=== PATIENT | female | born 1965 | race Caucasian/White ===

== ENCOUNTER 2016-06-11 07:08 | Day surgery (SDC) | payer OTHER ==
[2016-06-11] MEDS ORDERED: PALONOSETRON HCL 0.25 MG in SODIUM CHLORIDE 50 ML IVPB ONE (08:00)
[2016-06-11] MEDS ORDERED: DEXAMETHASONE INJECTION 10 MG in SODIUM CHLORIDE 50 ML IVPB ONE (08:00)
[2016-06-11] MEDS ORDERED: OXALIPLATIN 100 MG, OXALIPLATIN 40 MG in DEXTROSE 5%-WATER - 500 ML IV ONE (08:30)
[2016-06-11] MEDS ORDERED: WATER IVPB ONE (08:30)
[2016-06-11] MEDS ORDERED: DEXTROSE 5% IVPB ONE (08:30)
[2016-06-11] MEDS ORDERED: LEUCOVORIN IVPB ONE (08:30)
[2016-06-11] MEDS ORDERED: SODIUM CHLORIDE CP ONE (10:15)
[2016-06-11] MEDS ORDERED: FLUOROURACIL CP ONE (10:15)
[2016-06-11] MEDS ORDERED: FLUOROURACIL 500 MG/10 ML VIAL IVPUSH ONE (10:30)
[2016-06-11 10:46] LABS: EOSINOPHIL 12.6 % (0-4.5); MCH 25.3 pg (25.7-33.7); MCHC 32.6 g/dl (32.0-36.0); MEAN CELL VOLUME 77.4 fl (80-96); MEAN PLT VOLUME 7.1 fl (7.5-11.1); NEUTROPHILS 39.3 % (42.8-82.8); PLATELET COUNT 395 K/MM3 (134-434); RDW 19.4 % (11.6-15.6); WHITE BLOOD COUNT 5.3 K/mm3 (4.0-10.0)
[2016-06-11] MEDS ORDERED: PORTA CATH FLUSH 10 ML IVPUSH ONE (14:38)
[2016-06-11 17:39] VITALS: BP 115/77; PULSE 85
[2016-06-11 17:48] VITALS: TEMP 98.3
== END 2016-06-11 17:58 | disposition home or self-care (01) ==
LOC: JONCCHEMO 07:08 → J7W 11:25 → JONCCHEMO 17:58
PROVIDERS: ATTEND Internal Medicine Hematology & Oncology
DX: Z51.11 Encounter for antineoplastic chemotherapy (principal); C17.9 Malignant neoplasm of small intestine, unspecified
CPT/HCPCS: 36415; 85025; 96366; 96367; 96375; 96409; 96413; 96415; 96416; 96417; J2469; J9190; J9263

== ENCOUNTER 2016-06-13 07:13 | Day surgery (SDC) | payer OTHER ==
[2016-06-13 10:37] VITALS: BP 123/77; TEMP 97.7
[2016-06-13] MEDS ORDERED: PORTA CATH FLUSH 10 ML IVPUSH ONE (10:37)
[2016-06-13 11:09] VITALS: PULSE 63
== END 2016-06-13 11:54 | disposition home or self-care (01) ==
LOC: JONCCHEMO 07:13 → J7W 10:19 → JONCCHEMO 11:54
PROVIDERS: ATTEND Internal Medicine Hematology & Oncology
PROC: 3E033NZ Introduction of Analgesics, Hypnotics, Sedatives into Peripheral Vein, Percutaneous Approach (ICD-10-PCS; principal; 2016-06-13)
DX: Z53.8 Procedure and treatment not carried out for other reasons (principal)

== ENCOUNTER 2016-06-25 07:41 | Day surgery (SDC) | payer OTHER ==
[2016-06-25] MEDS ORDERED: DEXAMETHASONE INJECTION 10 MG in SODIUM CHLORIDE 50 ML IVPB ONE (08:00)
[2016-06-25] MEDS ORDERED: PALONOSETRON HCL 0.25 MG in SODIUM CHLORIDE 50 ML IVPB ONE (08:00)
[2016-06-25] MEDS ORDERED: WATER IVPB ONE (08:30)
[2016-06-25] MEDS ORDERED: DEXTROSE 5% IVPB ONE (08:30)
[2016-06-25] MEDS ORDERED: OXALIPLATIN 100 MG, OXALIPLATIN 40 MG in DEXTROSE 5%-WATER - 500 ML IV ONE (08:30)
[2016-06-25] MEDS ORDERED: LEUCOVORIN IVPB ONE (08:30)
[2016-06-25 09:45] LABS: BASOPHIL 0.9 % (0-2.0); EOSINOPHIL 11.7 % (0-4.5); MCH 24.6 pg (25.7-33.7); MCHC 32.2 g/dl (32.0-36.0); MEAN CELL VOLUME 76.4 fl (80-96); MEAN PLT VOLUME 7.1 fl (7.5-11.1); NEUTROPHILS 39.7 % (42.8-82.8); PLATELET COUNT 229 K/MM3 (134-434); RDW 18.3 % (11.6-15.6); WHITE BLOOD COUNT 5.5 K/mm3 (4.0-10.0)
[2016-06-25] MEDS ORDERED: FLUOROURACIL 500 MG/10 ML VIAL IVPUSH ONE (10:30)
[2016-06-25] MEDS ORDERED: SODIUM CHLORIDE CP ONE (10:35)
[2016-06-25] MEDS ORDERED: FLUOROURACIL CP ONE (10:35)
[2016-06-25 13:32] LABS: MAGNESIUM 2.2 mg/dL (1.8-2.4)
[2016-06-25 13:38] LABS: ALBUMIN 3.8 g/dl (3.4-5.0); BILIRUBIN,TOTAL 0.2 mg/dL (0.2-1.0); SGOT/AST 23 U/L (15-37); SGPT/ALT 24 U/L (12-78); TOT PROT 7.2 g/dl (6.4-8.2)
[2016-06-25 13:39] LABS: ALK PHOS 56 U/L (45-117); BILIRUBIN,DIRECT < 0.1 mg/dL (0.0-0.2)
[2016-06-25 14:38] VITALS: TEMP 98.3
[2016-06-25] MEDS ORDERED: PORTA CATH FLUSH 10 ML IVPUSH ONE (14:38)
[2016-06-25 16:50] VITALS: BP 118/82; PULSE 85
== END 2016-06-25 18:01 | disposition home or self-care (01) ==
LOC: JONCCHEMO 07:41 → J7W 11:46 → JONCCHEMO 18:01
PROVIDERS: ATTEND Internal Medicine Hematology & Oncology
PROC: 3E04305 Introduction of Other Antineoplastic into Central Vein, Percutaneous Approach (ICD-10-PCS; principal; 2016-06-25)
PROC: 3E04305 Introduction of Other Antineoplastic into Central Vein, Percutaneous Approach (ICD-10-PCS; 2016-06-25)
PROC: 3E043GC Introduction of Other Therapeutic Substance into Central Vein, Percutaneous Approach (ICD-10-PCS; 2016-06-25)
DX: Z51.11 Encounter for antineoplastic chemotherapy (principal); C17.9 Malignant neoplasm of small intestine, unspecified
CPT/HCPCS: 96368; 96375; 96413; 96415; 96416; J9190; J9263; 36415; 80076; 83735; 85025; 96367; 96409; G0498; J2469

== ENCOUNTER 2016-06-27 07:29 | Day surgery (SDC) | payer OTHER ==
[2016-06-27 14:37] VITALS: TEMP 97.8
[2016-06-27] MEDS ORDERED: PORTA CATH FLUSH 10 ML IVPUSH ONE (14:37)
[2016-06-27] MEDS ORDERED: DEXAMETHASONE SOD PHOSPHATE 10 MG/1 ML VIAL IVPB STA (14:37)
[2016-06-27] MEDS ORDERED: ONDANSETRON 4 MG/2 ML VIAL IVPB STA (14:37)
[2016-06-27] MEDS ORDERED: DEXAMETHASONE INJECTION 10 MG, ONDANSETRON INJECTION 8 MG in SODIUM CHLORIDE 100 ML IVPB ONE (14:45)
[2016-06-27 15:42] VITALS: BP 135/72; PULSE 72
== END 2016-06-27 17:55 | disposition home or self-care (01) ==
LOC: JONCNONCHE 07:29 → J7W 14:12 → JONCNONCHE 17:55
PROVIDERS: ATTEND Internal Medicine Hematology & Oncology
PROC: 0JPVXVZ Removal of Infusion Pump from Upper Extremity Subcutaneous Tissue and Fascia, External Approach (ICD-10-PCS; principal; 2016-06-27)
DX: Z53.8 Procedure and treatment not carried out for other reasons (principal)

== ENCOUNTER 2016-07-16 07:42 | Day surgery (SDC) | payer OTHER ==
[2016-07-16 08:47] LABS: BASOPHIL 0.2 % (0-2.0); EOSINOPHIL 3.3 % (0-4.5); MCH 24.2 pg (25.7-33.7); MCHC 31.7 g/dl (32.0-36.0); MEAN CELL VOLUME 76.3 fl (80-96); MEAN PLT VOLUME 6.2 fl (7.5-11.1); NEUTROPHILS 44.1 % (42.8-82.8); PLATELET COUNT 375 K/MM3 (134-434); RDW 17.3 % (11.6-15.6); WHITE BLOOD COUNT 4.8 K/mm3 (4.0-10.0)
[2016-07-16] MEDS ORDERED: PALONOSETRON HCL 0.25 MG in SODIUM CHLORIDE 50 ML IVPB ONE (10:00)
[2016-07-16] MEDS ORDERED: DEXAMETHASONE INJECTION 10 MG in SODIUM CHLORIDE 50 ML IVPB ONE (10:00)
[2016-07-16] MEDS ORDERED: PORTA CATH FLUSH 10 ML IVPUSH ONE (10:09)
[2016-07-16] MEDS ORDERED: OXALIPLATIN 140 MG in DEXTROSE 5%-WATER - 500 ML IV ONE (10:30)
[2016-07-16] MEDS ORDERED: LEUCOVORIN IVPB ONE (10:30)
[2016-07-16] MEDS ORDERED: WATER IVPB ONE (10:30)
[2016-07-16] MEDS ORDERED: DEXTROSE 5% IVPB ONE (10:30)
[2016-07-16 11:50] LABS: ALBUMIN 3.4 g/dl (3.4-5.0); ANION GAP 10 (8-16); CALCIUM 8.7 mg/dL (8.5-10.1); CO2 27 mmol/L (21-32); COCKROFT - GAULT 96.05; CREATININE 0.7 mg/dL (0.55-1.02); GLUCOSE,RANDOM 83 mg/dL (74-106); MAGNESIUM 2.2 mg/dL (1.8-2.4); SGOT/AST 30 U/L (15-37); SGPT/ALT 33 U/L (12-78)
[2016-07-16 11:51] LABS: ALK PHOS 58 U/L (45-117); BILIRUBIN,TOTAL 0.2 mg/dL (0.2-1.0); TOT PROT 7.1 g/dl (6.4-8.2)
[2016-07-16 11:54] LABS: BILIRUBIN,DIRECT < 0.1 mg/dL (0.0-0.2)
[2016-07-16] MEDS ORDERED: FLUOROURACIL 500 MG/10 ML VIAL IVPUSH ONE (12:30)
[2016-07-16] MEDS ORDERED: SODIUM CHLORIDE CP ONE (12:45)
[2016-07-16] MEDS ORDERED: FLUOROURACIL CP ONE (12:45)
[2016-07-16 15:17] VITALS: BP 108/70; PULSE 75; TEMP 98.1
== END 2016-07-16 18:28 | disposition home or self-care (01) ==
LOC: JONCCHEMO 07:42 → J7W 09:56 → JONCCHEMO 18:28
PROVIDERS: ATTEND Internal Medicine Hematology & Oncology
DX: Z51.11 Encounter for antineoplastic chemotherapy (principal); C17.9 Malignant neoplasm of small intestine, unspecified
CPT/HCPCS: 36415; 80053; 80076; 83735; 85025; 96367; 96375; 96409; 96413; 96415; G0498; J2469; J9190; J9263

== ENCOUNTER 2016-07-18 07:36 | Day surgery (SDC) | payer OTHER ==
[2016-07-18 17:02] VITALS: BP 122/64; PULSE 72; TEMP 97.4
== END 2016-07-18 11:53 | disposition home or self-care (01) ==
LOC: JONCNONCHE 07:36 → J7W 11:22 → JONCNONCHE 11:53
PROVIDERS: ATTEND Internal Medicine Hematology & Oncology
DX: Z51.11 Encounter for antineoplastic chemotherapy (principal); C17.9 Malignant neoplasm of small intestine, unspecified
CPT/HCPCS: 96367; 96375; 96413; 96415; 96417

== ENCOUNTER 2016-07-30 07:34 | Day surgery (SDC) | payer OTHER ==
[2016-07-30 09:10] LABS: MEAN PLT VOLUME 6.8 fl (7.5-11.1); WHITE BLOOD COUNT 3.2 K/mm3 (4.0-10.0)
[2016-07-30 09:12] LABS: BASOPHIL 0.4 % (0-2.0); EOSINOPHIL 11.6 % (0-4.5); MCH 24.1 pg (25.7-33.7); MCHC 31.6 g/dl (32.0-36.0); MEAN CELL VOLUME 76.3 fl (80-96); NEUTROPHILS 32.2 % (42.8-82.8); PLATELET COUNT 172 K/MM3 (134-434); RDW 17.7 % (11.6-15.6)
[2016-07-30 09:53] LABS: ALBUMIN 3.4 g/dl (3.4-5.0); ALK PHOS 56 U/L (45-117); ANION GAP 9 (8-16); BILIRUBIN,TOTAL 0.3 mg/dL (0.2-1.0); CALCIUM 8.4 mg/dL (8.5-10.1); CO2 24 mmol/L (21-32); CREATININE 0.7 mg/dL (0.55-1.02); GLUCOSE,RANDOM 96 mg/dL (74-106); MAGNESIUM 2.1 mg/dL (1.8-2.4); SGOT/AST 41 U/L (15-37); SGPT/ALT 39 U/L (12-78)
[2016-07-30] MEDS ORDERED: PALONOSETRON HCL 0.25 MG in SODIUM CHLORIDE 50 ML IVPB ONE (10:00)
[2016-07-30] MEDS ORDERED: DEXAMETHASONE INJECTION 10 MG in SODIUM CHLORIDE 50 ML IVPB ONE (10:00)
[2016-07-30] MEDS ORDERED: WATER IVPB ONE (10:30)
[2016-07-30] MEDS ORDERED: LEUCOVORIN IVPB ONE (10:30)
[2016-07-30] MEDS ORDERED: DEXTROSE 5% IVPB ONE (10:30)
[2016-07-30] MEDS ORDERED: OXALIPLATIN 140 MG in DEXTROSE 5%-WATER - 500 ML IV ONE (10:30)
[2016-07-30] MEDS ORDERED: PORTA CATH FLUSH 10 ML IVPUSH ONE (10:31)
[2016-07-30] MEDS ORDERED: FLUOROURACIL 2,500 MG/50 ML VIAL IVPUSH ONE (12:30)
[2016-07-30] MEDS ORDERED: FLUOROURACIL IV ONE (12:45)
[2016-07-30] MEDS ORDERED: SODIUM CHLORIDE IV ONE (12:45)
[2016-07-30 14:24] VITALS: BP 121/68; PULSE 79; TEMP 97.9
== END 2016-07-30 15:22 | disposition home or self-care (01) ==
LOC: JONCCHEMO 07:34 → J7W 10:17 → JONCCHEMO 15:22
PROVIDERS: ATTEND Internal Medicine Hematology & Oncology
DX: Z51.11 Encounter for antineoplastic chemotherapy (principal); C17.9 Malignant neoplasm of small intestine, unspecified
CPT/HCPCS: 36415; 80053; 83735; 85025; 96375; 96409; 96413; 96415; 96417; G0498; J2469; J9263

== ENCOUNTER 2016-08-01 07:21 | Day surgery (SDC) | payer OTHER ==
[2016-08-01 12:26] VITALS: PULSE 75; TEMP 98.1
[2016-08-01] MEDS ORDERED: PORTA CATH FLUSH 10 ML IVPUSH ONE (12:26)
[2016-08-01 12:27] VITALS: BP 109/66
== END 2016-08-01 12:39 | disposition home or self-care (01) ==
LOC: JONCNONCHE 07:21 → J7W 12:04 → JONCNONCHE 12:39
PROVIDERS: ATTEND Internal Medicine Hematology & Oncology
PROC: 0JPVXVZ Removal of Infusion Pump from Upper Extremity Subcutaneous Tissue and Fascia, External Approach (ICD-10-PCS; principal; 2016-08-01)
DX: Z53.8 Procedure and treatment not carried out for other reasons (principal)

== ENCOUNTER 2016-08-13 07:35 | Day surgery (SDC) | payer OTHER ==
[2016-08-13 10:00] LABS: BASOPHIL 1.2 % (0-2.0); EOSINOPHIL 6.3 % (0-4.5); MCH 24.1 pg (25.7-33.7); MCHC 31.9 g/dl (32.0-36.0); MEAN CELL VOLUME 75.3 fl (80-96); NEUTROPHILS 25.8 % (42.8-82.8); PLATELET COUNT 155 K/MM3 (134-434); RDW 17.6 % (11.6-15.6); WHITE BLOOD COUNT 2.4 K/mm3 (4.0-10.0)
[2016-08-13] MEDS ORDERED: DEXAMETHASONE INJECTION 10 MG in SODIUM CHLORIDE 50 ML IVPB ONE (10:00)
[2016-08-13] MEDS ORDERED: PALONOSETRON HCL 0.25 MG in SODIUM CHLORIDE 50 ML IVPB ONE (10:00)
[2016-08-13] MEDS ORDERED: WATER IVPB ONE (10:30)
[2016-08-13] MEDS ORDERED: LEUCOVORIN IVPB ONE (10:30)
[2016-08-13] MEDS ORDERED: DEXTROSE 5% IVPB ONE (10:30)
[2016-08-13] MEDS ORDERED: OXALIPLATIN 140 MG in DEXTROSE 5%-WATER - 500 ML IV ONE (10:30)
[2016-08-13 10:31] LABS: ALBUMIN 3.4 g/dl (3.4-5.0); ALK PHOS 60 U/L (45-117); ANION GAP 9 (8-16); BILIRUBIN,DIRECT 0.1 mg/dL (0.0-0.2); BILIRUBIN,TOTAL 0.3 mg/dL (0.2-1.0); CALCIUM 8.7 mg/dL (8.5-10.1); CO2 24 mmol/L (21-32); CREATININE 0.7 mg/dL (0.55-1.02); GLUCOSE,RANDOM 96 mg/dL (74-106); MAGNESIUM 2.1 mg/dL (1.8-2.4); SGOT/AST 35 U/L (15-37); SGPT/ALT 36 U/L (12-78); TOT PROT 7.3 g/dl (6.4-8.2)
[2016-08-13] MEDS ORDERED: PORTA CATH FLUSH 10 ML IVPUSH ONE (11:54)
[2016-08-13] MEDS ORDERED: FLUOROURACIL 500 MG/10 ML VIAL IVPUSH ONE (12:30)
[2016-08-13] MEDS ORDERED: FLUOROURACIL IV ONE (12:45)
[2016-08-13] MEDS ORDERED: SODIUM CHLORIDE IV ONE (12:45)
[2016-08-13 15:54] VITALS: BP 116/76; PULSE 65; TEMP 98.1
== END 2016-08-13 16:05 | disposition home or self-care (01) ==
LOC: JONCCHEMO 07:35 → J7W 11:41 → JONCCHEMO 16:05
PROVIDERS: ATTEND Internal Medicine Hematology & Oncology
PROC: 3E04305 Introduction of Other Antineoplastic into Central Vein, Percutaneous Approach (ICD-10-PCS; principal; 2016-08-13)
PROC: 3E043GC Introduction of Other Therapeutic Substance into Central Vein, Percutaneous Approach (ICD-10-PCS; 2016-08-13)
DX: Z51.11 Encounter for antineoplastic chemotherapy (principal); C17.9 Malignant neoplasm of small intestine, unspecified
CPT/HCPCS: 36415; 80053; 80076; 83735; 84702; 84703; 85025; 96374; 96375; G0498; J2469; J9190; J9263

== ENCOUNTER 2016-08-15 07:51 | Day surgery (SDC) | payer OTHER ==
[2016-08-15] MEDS ORDERED: ALTEPLASE 2 MG VIAL CVP ONE (14:30)
[2016-08-15 14:40] VITALS: BP 116/80; PULSE 86; TEMP 98.4
== END 2016-08-15 16:30 | disposition home or self-care (01) ==
LOC: JONCNONCHE 07:51 → J7W 13:15 → JONCNONCHE 16:30
PROVIDERS: ATTEND Internal Medicine Hematology & Oncology
PROC: 0JPVXVZ Removal of Infusion Pump from Upper Extremity Subcutaneous Tissue and Fascia, External Approach (ICD-10-PCS; principal; 2016-08-15)
DX: Z53.8 Procedure and treatment not carried out for other reasons (principal)
CPT/HCPCS: 96374; J2997

== ENCOUNTER 2016-08-27 07:25 | Day surgery (SDC) | payer OTHER ==
[2016-08-27] MEDS ORDERED: PALONOSETRON HCL 0.25 MG in SODIUM CHLORIDE 50 ML IVPB ONE (08:00)
[2016-08-27] MEDS ORDERED: DEXAMETHASONE INJECTION 10 MG in SODIUM CHLORIDE 50 ML IVPB ONE (08:00)
[2016-08-27] MEDS ORDERED: DEXTROSE 5% IVPB ONE (08:30)
[2016-08-27] MEDS ORDERED: WATER IVPB ONE (08:30)
[2016-08-27] MEDS ORDERED: LEUCOVORIN IVPB ONE (08:30)
[2016-08-27] MEDS ORDERED: OXALIPLATIN 100 MG, OXALIPLATIN 40 MG in DEXTROSE 5%-WATER - 500 ML IV ONE (08:30)
[2016-08-27 09:09] LABS: BASOPHIL 1.2 % (0-2.0); EOSINOPHIL 6.8 % (0-4.5); MCH 24.1 pg (25.7-33.7); MCHC 31.9 g/dl (32.0-36.0); MEAN CELL VOLUME 75.4 fl (80-96); MEAN PLT VOLUME 7.2 fl (7.5-11.1); NEUTROPHILS 24.7 % (42.8-82.8); PLATELET COUNT 126 K/MM3 (134-434); RDW 18.2 % (11.6-15.6); WHITE BLOOD COUNT 2.6 K/mm3 (4.0-10.0)
[2016-08-27 09:41] LABS: ALBUMIN 3.2 g/dl (3.4-5.0); ALK PHOS 74 U/L (45-117); ANION GAP 11 (8-16); BILIRUBIN,DIRECT 0.1 mg/dL (0.0-0.2); BILIRUBIN,TOTAL 0.3 mg/dL (0.2-1.0); CALCIUM 8.3 mg/dL (8.5-10.1); CO2 23 mmol/L (21-32); CREATININE 0.6 mg/dL (0.55-1.02); GLUCOSE,RANDOM 118 mg/dL (74-106); SGOT/AST 42 U/L (15-37); SGPT/ALT 43 U/L (12-78); TOT PROT 6.8 g/dl (6.4-8.2)
[2016-08-27] MEDS ORDERED: FLUOROURACIL 500 MG/10 ML VIAL IVPUSH ONE (10:30)
[2016-08-27 10:58] VITALS: TEMP 98.1
[2016-08-27] MEDS ORDERED: FLUOROURACIL CP ONE (11:00)
[2016-08-27] MEDS ORDERED: SODIUM CHLORIDE CP ONE (11:00)
[2016-08-27 11:01] LABS: URINE APPEARANCE CLEAR; URINE BILIRUBIN NEGATIVE (NEGATIVE); URINE BLOOD NEGATIVE (NEGATIVE); URINE COLOR LTYELLOW; URINE GLUCOSE (UA) NEGATIVE (NEGATIVE); URINE KETONE TRACE (NEGATIVE); URINE LEUK ESTERASE NEGATIVE (NEGATIVE); URINE NITRITE NEGATIVE (NEGATIVE); URINE PROTEIN NEGATIVE (NEGATIVE); URINE UROBILINOGEN NEGATIVE mg/dL (0.2-1.0)
[2016-08-27] MEDS ORDERED: POTASSIUM CHLORIDE TABS 20 MEQ TABLET.ER (FP) PO ONE (14:00)
[2016-08-27] MEDS ORDERED: PORTA CATH FLUSH 10 ML IVPUSH PRN (16:44)
[2016-08-27 18:02] VITALS: BP 120/82; PULSE 64
== END 2016-08-27 14:45 | disposition home or self-care (01) ==
LOC: JONCCHEMO 07:25 → J7W 10:34 → JONCCHEMO 14:45
PROVIDERS: ATTEND Internal Medicine Hematology & Oncology
PROC: 3E04305 Introduction of Other Antineoplastic into Central Vein, Percutaneous Approach (ICD-10-PCS; principal; 2016-08-27)
PROC: 3E04305 Introduction of Other Antineoplastic into Central Vein, Percutaneous Approach (ICD-10-PCS; 2016-08-27)
PROC: 3E043GC Introduction of Other Therapeutic Substance into Central Vein, Percutaneous Approach (ICD-10-PCS; 2016-08-27)
DX: Z51.11 Encounter for antineoplastic chemotherapy (principal); C17.9 Malignant neoplasm of small intestine, unspecified
CPT/HCPCS: 96366; 96367; 96368; 96375; 96411; 96413; 96415; 96416; J9190; J9263; 36415; 80053; 80076; 81003; 83735; 85025; 87086; 96409; 96417; G0498; J2469

== ENCOUNTER 2016-08-29 07:40 | Day surgery (SDC) | payer OTHER ==
[2016-08-29 17:01] VITALS: BP 123/72; PULSE 56; TEMP 97.6
== END 2016-08-29 14:00 | disposition home or self-care (01) ==
LOC: JONCNONCHE 07:40 → J7W 11:56 → JONCNONCHE 14:00
PROVIDERS: ATTEND Internal Medicine Hematology & Oncology
PROC: 0JPVXVZ Removal of Infusion Pump from Upper Extremity Subcutaneous Tissue and Fascia, External Approach (ICD-10-PCS; principal; 2016-08-29)
DX: Z53.8 Procedure and treatment not carried out for other reasons (principal)

== ENCOUNTER 2016-10-01 10:07 | Day surgery (SDC) | payer OTHER ==
[2016-10-01 10:45] LABS: BASOPHIL 0.8 % (0-2.0); EOSINOPHIL 13.7 % (0-4.5); MCH 24.9 pg (25.7-33.7); MCHC 31.9 g/dl (32.0-36.0); MEAN CELL VOLUME 78.1 fl (80-96); MEAN PLT VOLUME 7.6 fl (7.5-11.1); NEUTROPHILS 39.2 % (42.8-82.8); PLATELET COUNT 281 K/MM3 (134-434); RDW 21.8 % (11.6-15.6); WHITE BLOOD COUNT 4.1 K/mm3 (4.0-10.0)
[2016-10-01 11:10] LABS: ALBUMIN 3.5 g/dl (3.4-5.0); ALK PHOS 68 U/L (45-117); ANION GAP 7 (8-16); BILIRUBIN,DIRECT < 0.2 mg/dL (0.0-0.2); BILIRUBIN,TOTAL 0.3 mg/dL (0.2-1.0); CALCIUM 8.9 mg/dL (8.5-10.1); CO2 29 mmol/L (21-32); CREATININE 0.8 mg/dL (0.55-1.02); GLUCOSE,RANDOM 102 mg/dL (74-106); MAGNESIUM 2.2 mg/dL (1.8-2.4); SGOT/AST 31 U/L (15-37); SGPT/ALT 26 U/L (12-78); TOT PROT 7.4 g/dl (6.4-8.2)
[2016-10-01] MEDS ORDERED: DEXAMETHASONE INJECTION 10 MG in SODIUM CHLORIDE 50 ML IVPB ONE (12:00)
[2016-10-01] MEDS ORDERED: PALONOSETRON HCL 0.25 MG in SODIUM CHLORIDE 50 ML IVPB ONE (12:00)
[2016-10-01] MEDS ORDERED: LEUCOVORIN IVPB ONE (12:30)
[2016-10-01] MEDS ORDERED: OXALIPLATIN 140 MG in DEXTROSE 5%-WATER - 500 ML IV ONE (12:30)
[2016-10-01] MEDS ORDERED: DEXTROSE 5% IVPB ONE (12:30)
[2016-10-01] MEDS ORDERED: WATER IVPB ONE (12:30)
[2016-10-01] MEDS ORDERED: FLUOROURACIL 500 MG/10 ML VIAL IVPUSH ONE (14:30)
[2016-10-01] MEDS ORDERED: SODIUM CHLORIDE CP ONE (14:45)
[2016-10-01] MEDS ORDERED: FLUOROURACIL CP ONE (14:45)
[2016-10-01 15:46] VITALS: TEMP 97.9
[2016-10-01] MEDS ORDERED: PORTA CATH FLUSH 10 ML IVPUSH ONE (15:46)
[2016-10-01 19:05] VITALS: BP 120/78; PULSE 82
== END 2016-10-01 19:06 | disposition home or self-care (01) ==
LOC: JONCCHEMO 10:07 → J7W 10:49 → JONCCHEMO 19:06
PROVIDERS: ATTEND Internal Medicine Hematology & Oncology
DX: Z51.11 Encounter for antineoplastic chemotherapy (principal); C17.9 Malignant neoplasm of small intestine, unspecified
CPT/HCPCS: 36415; 80053; 80076; 83735; 85025; 96375; 96409; 96411; 96413; 96415; 96417; G0498; J2469; J9190; J9263

== ENCOUNTER 2016-10-03 12:35 | Day surgery (SDC) | payer OTHER ==
[2016-10-03 16:24] VITALS: BP 127/59; PULSE 71
== END 2016-10-03 14:30 | disposition home or self-care (01) ==
LOC: JONCNONCHE 12:35 → J7W 12:40 → JONCNONCHE 14:30
PROVIDERS: ATTEND Internal Medicine Hematology & Oncology
PROC: 0JPVXVZ Removal of Infusion Pump from Upper Extremity Subcutaneous Tissue and Fascia, External Approach (ICD-10-PCS; principal; 2016-10-03)
DX: Z53.8 Procedure and treatment not carried out for other reasons (principal)

== ENCOUNTER 2016-10-16 07:26 | Day surgery (SDC) | payer OTHER ==
[2016-10-16] MEDS ORDERED: DEXAMETHASONE INJECTION 10 MG in SODIUM CHLORIDE 50 ML IVPB ONE (08:00)
[2016-10-16] MEDS ORDERED: PALONOSETRON HCL 0.25 MG in SODIUM CHLORIDE 50 ML IVPB ONE (08:00)
[2016-10-16] MEDS ORDERED: DEXTROSE 5% IVPB ONE (08:30)
[2016-10-16] MEDS ORDERED: WATER IVPB ONE (08:30)
[2016-10-16] MEDS ORDERED: OXALIPLATIN 140 MG in DEXTROSE 5%-WATER - 500 ML IV ONE (08:30)
[2016-10-16] MEDS ORDERED: LEUCOVORIN IVPB ONE (08:30)
[2016-10-16 09:39] LABS: BASOPHIL 0.4 % (0-2.0); EOSINOPHIL 8.7 % (0-4.5); MCHC 31.4 g/dl (32.0-36.0); MEAN CELL VOLUME 79.6 fl (80-96); MEAN PLT VOLUME 6.5 fl (7.5-11.1); NEUTROPHILS 32.4 % (42.8-82.8); PLATELET COUNT 200 K/MM3 (134-434); RDW 23.1 % (11.6-15.6); WHITE BLOOD COUNT 2.9 K/mm3 (4.0-10.0)
[2016-10-16 10:09] LABS: ALBUMIN 3.6 g/dl (3.4-5.0); ANION GAP 11 (8-16); BILIRUBIN,DIRECT 0.2 mg/dL (0.0-0.2); BILIRUBIN,TOTAL 0.7 mg/dL (0.2-1.0); CALCIUM 8.8 mg/dL (8.5-10.1); CO2 25 mmol/L (21-32); CREATININE 0.8 mg/dL (0.55-1.02); GLUCOSE,RANDOM 94 mg/dL (74-106); MAGNESIUM 2.3 mg/dL (1.8-2.4); SGPT/ALT 33 U/L (12-78); TOT PROT 7.5 g/dl (6.4-8.2)
[2016-10-16 10:15] LABS: ALK PHOS 75 U/L (45-117); SGOT/AST 41 U/L (15-37)
[2016-10-16] MEDS ORDERED: FLUOROURACIL 500 MG/10 ML VIAL IVPUSH ONE (10:30)
[2016-10-16] MEDS ORDERED: FLUOROURACIL IV ONE (10:45)
[2016-10-16] MEDS ORDERED: SODIUM CHLORIDE IV ONE (10:45)
[2016-10-16] MEDS ORDERED: OXALIPLATIN IV ONE (11:30)
[2016-10-16] MEDS ORDERED: WATER IV ONE (11:30)
[2016-10-16] MEDS ORDERED: SODIUM CHLORIDE 250 ML IV ONE ×2 (11:30→15:00)
[2016-10-16] MEDS ORDERED: DEXTROSE 5% IV ONE (11:30)
[2016-10-16 12:03] LABS: ANISOCYTOSIS 3+; MICROCYTOSIS 2+
[2016-10-16 12:12] VITALS: TEMP 97.7
[2016-10-16] MEDS ORDERED: PORTA CATH FLUSH 10 ML IVPUSH ONE (12:17)
[2016-10-16 15:43] VITALS: BP 110/71; PULSE 70
== END 2016-10-16 15:45 | disposition home or self-care (01) ==
LOC: JONCCHEMO 07:26 → J7W 11:05 → JONCCHEMO 15:45
PROVIDERS: ATTEND Internal Medicine Hematology & Oncology
DX: Z51.11 Encounter for antineoplastic chemotherapy (principal); C17.9 Malignant neoplasm of small intestine, unspecified
CPT/HCPCS: 36415; 80053; 80076; 83735; 85025; 96361; 96375; 96413; 96415; 96417; G0498; J2469; J9263

== ENCOUNTER 2016-10-18 07:19 | Day surgery (SDC) | payer OTHER ==
[2016-10-18 16:59] VITALS: BP 100/62; PULSE 80; TEMP 99.1
== END 2016-10-18 13:15 | disposition home or self-care (01) ==
LOC: JONCCHEMO 07:19 → J7W 12:55 → JONCCHEMO 13:15
PROVIDERS: ATTEND Internal Medicine Hematology & Oncology
PROC: 0JPVXVZ Removal of Infusion Pump from Upper Extremity Subcutaneous Tissue and Fascia, External Approach (ICD-10-PCS; principal; 2016-10-18)
DX: Z53.8 Procedure and treatment not carried out for other reasons (principal)

== ENCOUNTER 2016-10-19 08:08 | Day surgery (SDC) | payer OTHER ==
[~2016-10-19 08:08] MED LIST: TBO-FILGRASTIM 480 MCG/0.8 ML DISP.SYRIN SQ ONE
[2016-10-19 10:52] VITALS: BP 116/72; PULSE 82; TEMP 98.3
== END 2016-10-19 18:12 | disposition home or self-care (01) ==
LOC: JONCCHEMO 08:08 → J7W 10:20 → JONCCHEMO 18:12
PROVIDERS: ATTEND Internal Medicine Hematology & Oncology
PROC: 3E013GC Introduction of Other Therapeutic Substance into Subcutaneous Tissue, Percutaneous Approach (ICD-10-PCS; principal; 2016-10-19)
DX: C17.9 Malignant neoplasm of small intestine, unspecified (principal)
CPT/HCPCS: 96372; J1447

== ENCOUNTER → 2016-10-29 | Day surgery (SDC) | payer OTHER ==
[~2016-10-29] MED LIST changes: +DEXAMETHASONE INJECTION 10 MG in SODIUM CHLORIDE 50 ML IVPB ONE; +DEXTROSE 5% IVPB ONE; +FLUOROURACIL 500 MG/10 ML VIAL IVPUSH ONE; +FLUOROURACIL IV ONE; +LEUCOVORIN IVPB ONE; +OXALIPLATIN 100 MG, OXALIPLATIN 40 MG in DEXTROSE 5%-WATER - 500 ML IV ONE; +PALONOSETRON HCL 0.25 MG in SODIUM CHLORIDE 50 ML IVPB ONE; +SODIUM CHLORIDE IV ONE; -TBO-FILGRASTIM 480 MCG/0.8 ML DISP.SYRIN SQ ONE; +WATER IVPB ONE
[2016-10-29 09:29] VITALS: BP 100/60; PULSE 83; TEMP 98.5
[2016-10-29 09:36] LABS: MCH 25.9 pg (25.7-33.7); MCHC 31.9 g/dl (32.0-36.0); MEAN CELL VOLUME 81.2 fl (80-96); MEAN PLT VOLUME 6.9 fl (7.5-11.1); PLATELET COUNT 190 K/MM3 (134-434); RDW 23.7 % (11.6-15.6); WHITE BLOOD COUNT 1.9 K/mm3 (4.0-10.0)
[2016-10-29 10:04] LABS: ALBUMIN 3.3 g/dl (3.4-5.0); ALK PHOS 81 U/L (45-117); ANION GAP 7 (8-16); BILIRUBIN,DIRECT < 0.1 mg/dL (0.0-0.2); BILIRUBIN,TOTAL 0.3 mg/dL (0.2-1.0); CALCIUM 8.4 mg/dL (8.5-10.1); CO2 25 mmol/L (21-32); CREATININE 0.5 mg/dL (0.55-1.02); GLUCOSE,RANDOM 95 mg/dL (74-106); SGOT/AST 41 U/L (15-37); SGPT/ALT 31 U/L (12-78)
== END | disposition home or self-care (01) ==
LOC: JONCCHEMO 07:56
PROVIDERS: ATTEND Internal Medicine Hematology & Oncology
PROC: 3E033GC Introduction of Other Therapeutic Substance into Peripheral Vein, Percutaneous Approach (ICD-10-PCS; principal; 2016-10-29)
DX: Z53.8 Procedure and treatment not carried out for other reasons (principal)
CPT/HCPCS: 36415; 80053; 80076; 83735; 85025

== ENCOUNTER 2016-11-06 07:31 | Day surgery (SDC) | payer OTHER ==
[2016-11-06] MEDS ORDERED: DEXAMETHASONE INJECTION 10 MG in SODIUM CHLORIDE 50 ML IVPB ONE (08:00)
[2016-11-06] MEDS ORDERED: PALONOSETRON HCL 0.25 MG in SODIUM CHLORIDE 50 ML IVPB ONE (08:00)
[2016-11-06] MEDS ORDERED: WATER IVPB ONE (08:30)
[2016-11-06] MEDS ORDERED: OXALIPLATIN 140 MG in DEXTROSE 5%-WATER - 500 ML IV ONE (08:30)
[2016-11-06] MEDS ORDERED: LEUCOVORIN IVPB ONE (08:30)
[2016-11-06] MEDS ORDERED: DEXTROSE 5% IVPB ONE (08:30)
[2016-11-06] MEDS ORDERED: FLUOROURACIL 500 MG/10 ML VIAL IVPUSH ONE (10:30)
[2016-11-06 10:38] LABS: MCH 25.9 pg (25.7-33.7); MEAN CELL VOLUME 81.1 fl (80-96); MEAN PLT VOLUME 6.5 fl (7.5-11.1); PLATELET COUNT 388 K/MM3 (134-434); RDW 22.5 % (11.6-15.6); WHITE BLOOD COUNT 4.4 K/mm3 (4.0-10.0)
[2016-11-06] MEDS ORDERED: SODIUM CHLORIDE IV ONE (10:40)
[2016-11-06] MEDS ORDERED: FLUOROURACIL IV ONE (10:40)
[2016-11-06 11:08] LABS: ALBUMIN 3.6 g/dl (3.4-5.0); ANION GAP 4 (8-16); BILIRUBIN,DIRECT 0.1 mg/dL (0.0-0.2); BILIRUBIN,TOTAL 0.3 mg/dL (0.2-1.0); CALCIUM 9.1 mg/dL (8.5-10.1); CO2 28 mmol/L (21-32); CREATININE 0.7 mg/dL (0.55-1.02); GLUCOSE,RANDOM 95 mg/dL (74-106); MAGNESIUM 2.4 mg/dL (1.8-2.4); SGOT/AST 45 U/L (15-37); SGPT/ALT 34 U/L (12-78); TOT PROT 7.6 g/dl (6.4-8.2)
[2016-11-06 11:09] LABS: ALK PHOS 98 U/L (45-117)
[2016-11-06 11:17] VITALS: TEMP 97.8
[2016-11-06 11:26] LABS: ANISOCYTOSIS 3+; BASOPHIL (MANUAL) 0 % (0-2.0); METAMYELOCYTE 2 % (0-2); PLATELET ESTIMATE ADEQUATE (NORMAL); REACTIVE LYMPHOCYTES 2 % (0-80)
[2016-11-06 15:34] VITALS: BP 136/82; PULSE 73
== END 2016-11-06 15:05 | disposition home or self-care (01) ==
LOC: JONCCHEMO 07:31 → J7W 11:03 → JONCCHEMO 15:05
PROVIDERS: ATTEND Internal Medicine Hematology & Oncology
DX: Z51.11 Encounter for antineoplastic chemotherapy (principal); C17.9 Malignant neoplasm of small intestine, unspecified
CPT/HCPCS: 36415; 80053; 80076; 83735; 85025; 96375; 96409; 96411; 96413; 96415; 96417; G0498; J2469; J9263

== ENCOUNTER 2016-11-08 07:22 | Day surgery (SDC) | payer OTHER ==
[2016-11-08 17:14] VITALS: TEMP 98.4
[2016-11-08 17:18] VITALS: BP 110/72; PULSE 70
== END 2016-11-08 12:30 | disposition home or self-care (01) ==
LOC: JONCCHEMO 07:22
PROVIDERS: ATTEND Internal Medicine Hematology & Oncology

== ENCOUNTER 2016-11-19 07:28 | Day surgery (SDC) | payer OTHER ==
[2016-11-19] MEDS ORDERED: PALONOSETRON HCL 0.25 MG in SODIUM CHLORIDE 50 ML IVPB ONE (08:00)
[2016-11-19] MEDS ORDERED: DEXAMETHASONE INJECTION 10 MG in SODIUM CHLORIDE 50 ML IVPB ONE (08:00)
[2016-11-19] MEDS ORDERED: OXALIPLATIN 100 MG, OXALIPLATIN 40 MG in DEXTROSE 5%-WATER - 500 ML IV ONE (08:30)
[2016-11-19] MEDS ORDERED: LEUCOVORIN IVPB ONE (08:30)
[2016-11-19] MEDS ORDERED: DEXTROSE 5% IVPB ONE (08:30)
[2016-11-19] MEDS ORDERED: WATER IVPB ONE (08:30)
[2016-11-19 10:03] VITALS: TEMP 98.1
[2016-11-19] MEDS ORDERED: FLUOROURACIL 2,500 MG/50 ML VIAL IV ONE (10:30)
[2016-11-19 10:35] LABS: MCH 25.8 pg (25.7-33.7); MCHC 31.6 g/dl (32.0-36.0); MEAN CELL VOLUME 81.7 fl (80-96); MEAN PLT VOLUME 6.7 fl (7.5-11.1); PLATELET COUNT 202 K/MM3 (134-434); RDW 21.6 % (11.6-15.6); WHITE BLOOD COUNT 2.7 K/mm3 (4.0-10.0)
[2016-11-19] MEDS ORDERED: SODIUM CHLORIDE CP ONE (10:35)
[2016-11-19] MEDS ORDERED: FLUOROURACIL CP ONE (10:35)
[2016-11-19 10:48] LABS: ALBUMIN 3.3 g/dl (3.4-5.0); ALK PHOS 107 U/L (45-117); ANION GAP 10 (8-16); BILIRUBIN,DIRECT < 0.1 mg/dL (0.0-0.2); BILIRUBIN,TOTAL 0.4 mg/dL (0.2-1.0); CALCIUM 8.7 mg/dL (8.5-10.1); CO2 24 mmol/L (21-32); CREATININE 0.6 mg/dL (0.55-1.02); GLUCOSE,RANDOM 94 mg/dL (74-106); SGOT/AST 40 U/L (15-37); SGPT/ALT 33 U/L (12-78); TOT PROT 7.1 g/dl (6.4-8.2)
[2016-11-19] MEDS ORDERED: LIDOCAINE 2.5%/PRILOCAINE 2.5% (5 Gram/TUBE) TP ONE (11:00)
[2016-11-19 12:10] LABS: PLATELET ESTIMATE ADEQUATE (NORMAL); TOTAL CELLS COUNTED 100
[2016-11-19 12:11] LABS: ANISOCYTOSIS 1+; MACROCYTOSIS FEW; MICROCYTOSIS FEW
[2016-11-19 12:12] LABS: HYPOCHROMIA 1+
[2016-11-19 13:28] VITALS: BP 121/79; PULSE 77
== END 2016-11-19 14:45 | disposition home or self-care (01) ==
LOC: JONCCHEMO 07:28 → J7W 10:59 → JONCCHEMO 14:45
PROVIDERS: ATTEND Internal Medicine Hematology & Oncology
DX: Z51.11 Encounter for antineoplastic chemotherapy (principal); C17.9 Malignant neoplasm of small intestine, unspecified
CPT/HCPCS: 36415; 80053; 80076; 83735; 85025; 96375; 96415; 96417; G0498; J2469

== ENCOUNTER 2016-11-21 07:33 | Day surgery (SDC) | payer OTHER ==
[2016-11-21 17:22] VITALS: BP 106/64; PULSE 76; TEMP 98.5
== END 2016-11-21 13:40 | disposition home or self-care (01) ==
LOC: JONCCHEMO 07:33 → J7W 12:20 → JONCCHEMO 13:40
PROVIDERS: ATTEND Internal Medicine Hematology & Oncology

== ENCOUNTER 2016-12-03 07:18 | Day surgery (SDC) | payer OTHER ==
[2016-12-03] MEDS ORDERED: PALONOSETRON HCL 0.25 MG in SODIUM CHLORIDE 50 ML IVPB ONE (10:00)
[2016-12-03] MEDS ORDERED: DEXAMETHASONE INJECTION 10 MG in SODIUM CHLORIDE 50 ML IVPUSH ONE (10:00)
[2016-12-03 10:22] LABS: BASOPHIL 0.9 % (0-2.0); EOSINOPHIL 7.4 % (0-4.5); MCH 25.9 pg (25.7-33.7); MCHC 32.1 g/dl (32.0-36.0); MEAN CELL VOLUME 80.9 fl (80-96); MEAN PLT VOLUME 6.6 fl (7.5-11.1); NEUTROPHILS 43.1 % (42.8-82.8); PLATELET COUNT 288 K/MM3 (134-434); RDW 20.4 % (11.6-15.6); WHITE BLOOD COUNT 3.3 K/mm3 (4.0-10.0)
[2016-12-03] MEDS ORDERED: DEXTROSE 5% IVPB ONE (10:30)
[2016-12-03] MEDS ORDERED: WATER IVPB ONE (10:30)
[2016-12-03] MEDS ORDERED: LEUCOVORIN IVPB ONE (10:30)
[2016-12-03 10:45] LABS: ALBUMIN 3.5 g/dl (3.4-5.0); ANION GAP 8 (8-16); BILIRUBIN,DIRECT < 0.1 mg/dL (0.0-0.2); BILIRUBIN,TOTAL 0.6 mg/dL (0.2-1.0); CALCIUM 8.6 mg/dL (8.5-10.1); CO2 26 mmol/L (21-32); CREATININE 0.6 mg/dL (0.55-1.02); GLUCOSE,RANDOM 92 mg/dL (74-106); MAGNESIUM 2.4 mg/dL (1.8-2.4); SGOT/AST 39 U/L (15-37); SGPT/ALT 37 U/L (12-78); TOT PROT 7.6 g/dl (6.4-8.2)
[2016-12-03 10:46] LABS: ALK PHOS 100 U/L (45-117)
[2016-12-03] MEDS ORDERED: FLUOROURACIL CP ONE (12:30)
[2016-12-03] MEDS ORDERED: SODIUM CHLORIDE CP ONE (12:30)
[2016-12-03 13:36] VITALS: PULSE 80
[2016-12-03 13:46] VITALS: BP 114/71; TEMP 98.1
== END 2016-12-03 14:06 | disposition home or self-care (01) ==
LOC: JONCCHEMO 07:18 → J7W 10:58 → JONCCHEMO 14:06
PROVIDERS: ATTEND Internal Medicine Hematology & Oncology
DX: Z51.11 Encounter for antineoplastic chemotherapy (principal); C17.9 Malignant neoplasm of small intestine, unspecified
CPT/HCPCS: 36415; 80053; 80076; 83735; 85025; 96367; 96375; 96413; 96415; 96417; G0498; J2469

== ENCOUNTER 2016-12-05 06:54 | Day surgery (SDC) | payer OTHER ==
[2016-12-05] MEDS ORDERED: PORTA CATH FLUSH 10 ML IVPUSH ONE (17:54)
[2016-12-05 17:55] VITALS: BP 112/70; PULSE 64; TEMP 97.2
== END 2016-12-05 17:15 | disposition home or self-care (01) ==
LOC: JONCCHEMO 06:54 → J7W 17:51
PROVIDERS: ATTEND Internal Medicine Hematology & Oncology
PROC: 0JPVXVZ Removal of Infusion Pump from Upper Extremity Subcutaneous Tissue and Fascia, External Approach (ICD-10-PCS; principal; 2016-12-05)
DX: Z53.8 Procedure and treatment not carried out for other reasons (principal)

== ENCOUNTER 2017-01-07 07:27 | Day surgery (SDC) | payer OTHER ==
[2017-01-07] MEDS ORDERED: PALONOSETRON HCL 0.25 MG in SODIUM CHLORIDE 50 ML IVPB ONE (08:00)
[2017-01-07] MEDS ORDERED: DEXAMETHASONE INJECTION 10 MG in SODIUM CHLORIDE 50 ML IVPB ONE (08:00)
[2017-01-07] MEDS ORDERED: DEXTROSE 5% IVPB ONE (08:30)
[2017-01-07] MEDS ORDERED: WATER IVPB ONE (08:30)
[2017-01-07] MEDS ORDERED: OXALIPLATIN 100 MG, OXALIPLATIN 40 MG in DEXTROSE 5%-WATER - 500 ML IV ONE (08:30)
[2017-01-07] MEDS ORDERED: LEUCOVORIN IVPB ONE (08:30)
[2017-01-07 09:47] LABS: BASOPHIL 0.8 % (0-2.0); EOSINOPHIL 8.9 % (0-4.5); MCH 25.7 pg (25.7-33.7); MCHC 31.5 g/dl (32.0-36.0); MEAN CELL VOLUME 81.7 fl (80-96); MEAN PLT VOLUME 6.3 fl (7.5-11.1); PLATELET COUNT 331 K/MM3 (134-434); RDW 18.7 % (11.6-15.6); WHITE BLOOD COUNT 3.6 K/mm3 (4.0-10.0)
[2017-01-07 10:05] LABS: ALBUMIN 3.7 g/dl (3.4-5.0); ANION GAP 6 (8-16); BILIRUBIN,DIRECT < 0.2 mg/dL (0.0-0.2); CO2 28 mmol/L (21-32); CREATININE 0.6 mg/dL (0.55-1.02); GLUCOSE,RANDOM 93 mg/dL (74-106); MAGNESIUM 2.1 mg/dL (1.8-2.4); SGOT/AST 31 U/L (15-37); SGPT/ALT 27 U/L (12-78)
[2017-01-07 10:07] LABS: ALK PHOS 80 U/L (45-117); BILIRUBIN,TOTAL 0.4 mg/dL (0.2-1.0); TOT PROT 7.1 g/dl (6.4-8.2)
[2017-01-07] MEDS ORDERED: FLUOROURACIL 500 MG/10 ML VIAL IVPUSH ONE (10:30)
[2017-01-07] MEDS ORDERED: SODIUM CHLORIDE IV ONE (10:45)
[2017-01-07] MEDS ORDERED: FLUOROURACIL IV ONE (10:45)
[2017-01-07 10:50] VITALS: TEMP 98.1
[2017-01-07 17:18] VITALS: BP 123/86; PULSE 77
[2017-01-07] MEDS ORDERED: PORTA CATH FLUSH 10 ML IVPUSH ONE (17:18)
== END 2017-01-07 13:30 | disposition home or self-care (01) ==
LOC: JONCCHEMO 07:27 → J7W 10:06 → JONCCHEMO 13:30
PROVIDERS: ATTEND Internal Medicine Hematology & Oncology
DX: Z51.11 Encounter for antineoplastic chemotherapy (principal); C17.9 Malignant neoplasm of small intestine, unspecified
CPT/HCPCS: 36415; 80053; 80076; 83735; 85025; 96375; 96409; 96411; 96413; 96415; 96417; G0498; J2469; J9263

== ENCOUNTER 2017-01-09 07:30 | Day surgery (SDC) | payer OTHER ==
[2017-01-09 14:03] VITALS: BP 110/70; PULSE 70; TEMP 98.2
[2017-01-09] MEDS ORDERED: PORTA CATH FLUSH 10 ML IVPUSH ONE (14:15)
== END 2017-01-09 13:10 | disposition home or self-care (01) ==
LOC: JONCNONCHE 07:30 → J7W 13:00 → JONCNONCHE 13:10
PROVIDERS: ATTEND Internal Medicine Hematology & Oncology
PROC: 0JPVXVZ Removal of Infusion Pump from Upper Extremity Subcutaneous Tissue and Fascia, External Approach (ICD-10-PCS; principal; 2017-01-09)
DX: Z53.8 Procedure and treatment not carried out for other reasons (principal)

== ENCOUNTER 2017-07-26 08:13 | Day surgery (SDC) | payer OTHER ==
[2017-07-26 09:58] VITALS: TEMP 98.6
[2017-07-26] MEDS ORDERED: IRON SUCROSE INJECTION 200 MG in SODIUM CHLORIDE 100 ML IVPB ONE (10:00)
[2017-07-26 10:24] VITALS: BP 116/72; PULSE 78
== END 2017-07-26 10:24 | disposition home or self-care (01) ==
LOC: JONCNONCHE 08:13 → J7W 09:38 → JONCNONCHE 10:24
PROVIDERS: ATTEND Internal Medicine Hematology & Oncology
PROC: 3E033GC Introduction of Other Therapeutic Substance into Peripheral Vein, Percutaneous Approach (ICD-10-PCS; principal; 2017-07-26)
DX: D50.9 Iron deficiency anemia, unspecified (principal); C17.9 Malignant neoplasm of small intestine, unspecified
CPT/HCPCS: 96365; J1756

== ENCOUNTER 2019-11-03 09:21 | Inpatient (IN) | payer OTHER ==
--- NOTE | 2019-11-02 14:18 | HP ---
DATE OF ADMISSION: 11/04/2019 HISTORY: This is a 54-year-old female who underwent an appendectomy in [place] approximately 4 years ago. Following that operation, she was told she had cancer and therefore underwent laparoscopic right hemicolectomy. She did well from those 2 operations in [place] and subsequently moved to [place]. While in [place], she presented to [facility] in 2017 with complaints of nausea, vomiting, abdominal pain. Workup at that time demonstrated the patient to have a small-bowel obstruction. She ultimately was taken to the operating room by Dr. Martinez for a laparotomy, and attempt at a laparoscopic small-bowel resection was made; however, during the surgery she was converted to an open procedure. She underwent a small-bowel resection. Following that surgery, she was taken back to the operating room for a deep wound infection and debridement. In any event, the pathology on the small bowel segment demonstrated the patient to have a small bowel tumor that was adenocarcinoma. Margins were uninvolved. She now underwent a colonoscopy by Dr. Alford. At the time of colonoscopy, she was noted to have a 2/3 circumferential tumor, and the tumor itself was fairly extensive, extending approximately 7 cm in length. Biopsies of this were taken and consistent with an adenocarcinoma as well. At the time of colonoscopy, the patient had the distal end tattooed with Spot. The tumor, after discussing the case with Dr. Alford, was at 20-25 cm in the distal sigmoid. She underwent a CAT scan of the abdomen and pelvis as well prior to intervention. The CT demonstrated no obvious metastatic disease. This CAT scan was done in August of 2019 at [facility]. PAST MEDICAL HISTORY: She denies coronary artery disease, hypertension, diabetes. PAST SURGICAL HISTORY: As described in the history. Patient has had a laparoscopic appendectomy; a laparoscopic right hemicolectomy; attempt at a laparoscopic small-bowel resection, converted to an open; patient was taken back to the operating room for a deep wound infection and debridement. ALLERGIES: None. MEDICATIONS: Pepcid. SOCIAL HISTORY: She does not smoke. No history of drug use, and she drinks socially. PHYSICAL EXAMINATION: Patient examined in the supine position. Ada present throughout the examination. The abdomen was soft, nontender, nondistended. She has a scar that extends approximately 5 cm above the umbilicus and beyond the umbilicus inferiorly. The scar has some mild keloid changes to it. No other significant findings on the abdominal examination. Rectal examination deferred. Patient just had colonoscopy. IMPRESSION/PLAN: Colon cancer. This is a 54-year-old female with a biopsy- proven colon cancer at approximately 20-25 cm. The tumor at the time of endoscopic evaluation was noted to be approximately 7 cm in length, and the distal site of the tumor is at approximately 20 cm. The patient is also noted to have 2 previous cancers removed, one in the small bowel and one in the right colon. I spent over 1 hour with this patient discussing her surgery, the various surgical approaches such as open, robotic, and laparoscopic. The patient understands that given her previous resections, she is at higher risk for developing a postoperative leak due to tension and potential blood supply issues depending on what was removed during the right hemicolectomy and what is remaining. Also, she is at higher risk for having leak postoperatively because she has had 2 bouts of chemotherapy which clearly would affect her marginal artery of [place] as well. Patient understands her increased risks of surgery and still wants to proceed. She understands that she may wind up with a diverting loop ostomy at the time of significant for as well, depending on what I feel at the time of the operation regarding her primary anastomosis. She understands that if she leaks, she will require a reoperation to deal with the leak and possible permanent colostomy. Patient understands that she needs this operation since she has another cancer in her colon, and after her multiple other operations she realizes that there is a higher chance that she will be converted to an open procedure, especially given the fact that she was converted from a laparoscopic attempt at a small-bowel resection to an open resection, followed by a deep wound infection and debridement. Even with all these risks and comorbidities together, the patient wants to proceed with surgery and an attempt at a laparoscopic low anterior resection, possible open. The indications, alternatives, and complications of the procedure have been discussed at length. Questions have been answered. Will plan to obtain written consent the day of surgery. JARETH GATES M.D. [id number] cc: MD Supriya Chance MD MTDD
[2019-11-03 11:57] VITALS: BMI 31.4
[2019-11-03] MEDS ORDERED: PEG 3350/NA SULF BICARB CL/KCL 4000 ML SOLN.RECON PO ONE (12:00)
[2019-11-03] MEDS: LACTATED RINGERS SOLUTION 1,000 ML IV SCH ×2 (12:29→21:38)
[2019-11-03] MEDS: PANTOPRAZOLE 40 MG TABLET PO SCH (12:29)
[2019-11-04] MEDS ORDERED: PT OWN MED DRAWER 7, Y5N ONE ×2 (05:50→07:08)
[2019-11-04] MEDS ORDERED: DEXAMETHASONE SOD PHOSPHATE/PF 10 MG/ML SDV ONE (07:29)
[2019-11-04] MEDS ORDERED: fentaNYL CITRATE 250 MCG/5 ML VIAL ONE (07:31)
[2019-11-04] MEDS ORDERED: PROPOFOL 20 ML ONE ×3 (07:31)
[2019-11-04] MEDS ORDERED: MIDAZOLAM HCL 2 MG/2 ML SINGLE DOSE VIAL ONE ×3 (07:31)
[2019-11-04] MEDS ORDERED: ROCURONIUM BROMIDE 50 MG/5 ML SYRINGE ONE ×2 (07:31→09:55)
[2019-11-04] MEDS ORDERED: ERTAPENEM SODIUM 1 GM in SODIUM CHLORIDE 50 ML IVPB ONE (08:00)
[2019-11-04] MEDS ORDERED: GlUCAGON HUMAN RECOMBINANT 1 MG/VIAL ONE (08:10)
[2019-11-04] MEDS ORDERED: ERTAPENEM SODIUM 1 GM VIAL IVPB ONE (09:15)
[2019-11-04] MEDS ORDERED: HYDROmorphone HCl 2 MG/ML VIAL ONE (09:42)
[2019-11-04] MEDS: PANTOPRAZOLE 40 MG TABLET PO SCH (10:00)
[2019-11-04] MEDS ORDERED: NEOSTIGMINE METHYLSULFATE 0.5 MG/1 ML - 10 ML MDV ONE (11:32)
--- NOTE | 2019-11-04 12:22 | OP ---
Operative Note - Note: Operative Date: 11/04/19 Pre-Operative Diagnosis: colon cancer Operation: laparoscopic low anterior resection Findings: large tumor in distal sigmoid with paulino-colonic met Post-Operative Diagnosis: Same as Pre-op Surgeon: Felipe Mcgee Poacher Operator: Matt Issa Anesthesiologist/NARROW FABRIC CALENDERER: Mikayla Tao Anesthesia: General Specimens Removed: rectosigmoid colon with additional distal margin and mestenteric met for frozen section Estimated Blood Loss (mls): 100 Operative Report Dictated: Yes
[2019-11-04] MEDS ORDERED: LACTATED RINGERS SOLUTION 1,000 ML IV SCH (13:15)
[2019-11-04] MEDS: D5-1/2NS+20 MEQ KCL - 20 MEQ/1,000 ML INFUS.BAG IV SCH ×2 (14:56→23:30)
[2019-11-04] MEDS: morphine SULFATE 4 MG/ML VIAL IVPB PRN ×2 (15:50→21:33)
[2019-11-04] MEDS: ONDANSETRON 4 MG/2 ML VIAL IVPUSH PRN (21:28)
[2019-11-05] MEDS: morphine SULFATE 4 MG/ML VIAL IVPB PRN ×3 (05:46→15:08)
[2019-11-05 06:56] LABS: HEMATOCRIT 31.7 % (32.4-45.2); HEMOGLOBIN 10.7 GM/dL (10.7-15.3); MCH 29.4 pg (25.7-33.7); MCHC 33.8 g/dl (32.0-36.0); MEAN CELL VOLUME 87.1 fl (80-96); MEAN PLT VOLUME 6.8 fl (7.5-11.1); PLATELET COUNT 390 K/MM3 (134-434); RBC 3.64 M/mm3 (3.60-5.2); RDW 12.5 % (11.6-15.6); WHITE BLOOD COUNT 14.2 K/mm3 (4.0-10.0)
[2019-11-05 07:13] LABS: CALCIUM 7.9 mg/dL (8.5-10.1); CREATININE 0.6 mg/dL (0.55-1.3); MAGNESIUM 1.9 mg/dL (1.8-2.4); PHOSPHOROUS 3.1 mg/dL (2.5-4.9); POTASSIUM 4.1 mmol/L (3.5-5.1)
[2019-11-05] MEDS ORDERED: ERTAPENEM SODIUM 1 GM in SODIUM CHLORIDE 50 ML IVPB SCH (08:00)
[2019-11-05] MEDS: ENOXAPARIN NA (PORCINE) 40 MG/0.4 ML DISP.SYRIN SQ SCH (09:20)
[2019-11-05] MEDS: PANTOPRAZOLE SODIUM 40 MG VIAL IVPUSH SCH (09:20)
[2019-11-05] MEDS: D5-1/2NS+20 MEQ KCL - 20 MEQ/1,000 ML INFUS.BAG IV SCH (12:08)
--- NOTE | 2019-11-05 12:44 | OP ---
DATE OF OPERATION: 11/04/2019 PREOPERATIVE DIAGNOSIS: Colon cancer. POSTOPERATIVE DIAGNOSIS: Colon cancer. PROCEDURE: Laparoscopic low anterior resection, extensive peritoneal lavage, extensive lysis of adhesions (taking over 35 to 40 minutes of the case), splenic flexure takedown, anal dilation, rigid sigmoidoscopy, excision of 60 sq cm of devitalized tissue. SURGEON: Felipe Mcgee MD AUDIT MANAGER: Matt Issa DO ANESTHESIA: Mikayla Tao MD (general). ESTIMATED BLOOD LOSS: Minimal. SPECIMEN: Rectosigmoid and colonic mesenteric nodule. INDICATION FOR PROCEDURE: This is a 54-year-old female with diagnosis of a large colon cancer at approximately 20 cm. It encompasses 2/3 of the circumference of the diameter of the colon. Patient is here today for resection. Patient had previous laparoscopic appendectomy followed by a laparoscopic colectomy, followed by an attempt at a laparoscopic small-bowel resection that was converted to open with take-back to the operating room secondary to anastomotic leak versus wound infection. DESCRIPTION OF PROCEDURE: Patient identified this morning. She was placed in the lithotomy position. General anesthesia was performed by the anesthesiologist. The abdomen prepped with ChloraPrep and the perineum prepped with Betadine. It was draped in a sterile fashion in the usual technique. A supraumbilical incision overlying the previous scar was made and deepened through the subcutaneous tissue. The fascia was divided sharply and the peritoneum incised. Then under direct vision a Veress needle followed by an 11-mm port was placed. A 5-mm left lower quadrant port was placed under direct vision. There were multiple adhesions of omentum to the anterior abdominal wall inhibiting placement of the other ports safely and, therefore, those adhesions were taken down with the LigaSure device. That took approximately 5 minutes. The remaining ports were then all placed under direct vision. Due to the previous and extensive surgery she has had and infection, there were multiple adhesions of small-bowel to the anterior abdominal wall, small-bowel to itself and small-bowel to the colon. These adhesions were lysed as necessary to perform this operation with the LigaSure device. This lysis of adhesions took 35 to 40 minutes. Once the extensive lysis of adhesions was completed, attention now focused on the actual operation. The left colon identified followed by the sigmoid. The sigmoid tumor was in the location as described endoscopically. The tattooed areas were noted. The sigmoid colon lifted to the anterior abdominal wall. The mesentery at the sigmoid identified. The peritoneal reflection on the patient's right side incised and the mesenteric vessels were circumferentially isolated and the retroperitoneum opened through this window as well. The left ureter identified, left in the retroperitoneum. The mesenteric vessels to the sigmoid were subsequently divided with the LigaSure device. Four welds placed prior to complete division. The window now expanded. The left ureter was now reflected more into the retroperitoneum and flipped off of the mesentery of the sigmoid and left colon. Next, the peritoneal reflection going into the pelvis with the colon on the right side was incised. The right superior rectal vessel was identified and taken with LigaSure device. Four welds placed prior to complete division. The colon now rolled medially and the peritoneal reflection on the patient's left side identified, divided sharply and the window that was created was identified and this now taken more into the pelvis, and in doing so the left superior rectal vessel identified, isolated and then taken in a similar fashion with the LigaSure device. Now the colon rolled completely to the medial side and the white line of Toldt along the left colon was taken down as needed. The proximal line of resection was identified to be in the distal 2/3 of the rectum beyond the pelvic brim. The fat around the rectum was then subsequently isolated and divided with LigaSure device circumferentially and using a single load 60 purple stapler the rectum was divided with a good margin. The colon now freed up against the left colon and the left pelvis sidewall, and in doing so there was a white nodule noted on the lateral mesenteric side of the colon. This nodule was off the colon with LigaSure device and sent as a frozen section. Pathology on the frozen section demonstrated adenocarcinoma, making this patient at least a locally advanced colon cancer. Due to the previous surgery this patient had, there were multiple adhesions at the level of the splenic flexure and to ensure a tension-free anastomosis the splenic flexure had to be taken down. Those adhesions of small- bowel to the omentum and so forth in that region were taken with LigaSure device. Next, the splenic flexure was taken down with LigaSure as well and, due to the previous resection for a right hemicolectomy, the BILLIE on the left side was not divided since I did not know if they took the right branch in the right augustine or if they took both the right and left branch of the middle colic from the right augustine and, therefore, taking the middle colic would impede the blood supply to the remainder of this colon and therefore the BILLIE was left intact. The colon now freed off the retroperitoneum with just blunt dissection leaving the BILLIE intact to allow the most length possible. At this point, once the length was obtained, the previous scar was then lengthened at the level of the port site. The fascia divided and a wound protector placed. The area then toweled off in a standard fashion. The specimen brought out through this extraction site and the proximal line of resection was chosen into the left colon away from the obvious tumor. A colotomy was made more distal to the proximal line of resection and a 28 EEA anvil placed under direct vision. A milligram of glucagon given during this procedure at this time. Next, the proximal colon was divided with a NAIMA 80, 3.8-mm stapler. The EEA anvil was then spiked through the center aspect of the staple line and then sutured in place with a single 3-0 Prolene pursestring suture, the spike removed. The colon returned to its anatomic position and now the surgeon and retail event assistant all changed gown and gloves. The extraction site fascia was reapproximated with interrupted 0 PDS suture. The abdomen was then reinsufflated. The retail event assistant went below, performed anal dilation followed by bringing serial dilators to the rectal stump staple line with small, medium and large. This was done under direct vision followed by the EEA stapler. The EEA stapler was then subsequently spiked through the midline of the staple line. The 2 ends mated, the stapler closed, fired and the stapler subsequently removed. The donuts on both sides of the staple line in the anvil were complete and thick. The distal donut sent for additional distal margin. The pelvis was irrigated. The operative field noted to be hemostatic. The bowel proximal and distal to the anastomosis was pink and viable. The anastomosis was under no tension. Now the pelvis was filled with water, the anastomosis submerged and the retail event assistant performed a sigmoidoscopy with insufflating air. The water in the pelvis was displaced due to the distention of the rectum. However, there was no air leak identified. This was done on 3 separate accounts and no air leak identified. The sigmoidoscope opened and the air extracted in a retrograde fashion and milked to rule out for a ball valve effect. The retail event assistant performed a limited sigmoidoscopy just proximal to the staple line from the rectal side and the mucosa was pink and viable. The anastomosis was grossly intact and mucosa distal to this was pink and viable as well. The abdomen copiously irrigated with warm saline, the irrigant retrieved. The operative field noted to be hemostatic. The left ureter peristalsing well and noted to be intact. The right ureter planes were not violated. Ports removed. Port sites were hemostatic. A 10 flat MANJU was placed and brought out through one of the 5- mm port sites. The fascia at the camera site and 12-mm port site reapproximated with interrupted 0 Vicryl suture and, due to the poor quality of scar this patient had prior to surgery, the scar and thinned out tissue was then subsequently excised as 60 sq cm of devitalized tissue. The skin was then subsequently closed with 4-0 Biosyn followed by Dermabond at all incisions. At the conclusion of this case sponge counts were correct. ATTESTATION: Brief operative note handwritten on the preprinted form. [facility] queried prior to giving any narcotics. Demian MARTINS [id number] cc: MD Matt Chance MD MTD
--- NOTE | 2019-11-05 12:48 | PN ---
Progress Note (short form) - Note Progress Note: surgery pt seen and examined feels well. no pain. oob. 2000 on spirometer afebrile abd- soft, minimal distension, dakota serous. nt u/o >1500 Plan- 1) Pod#1- npo, ivf, dakota, gallardo 2) morphine, oxycodone 3) prophylaxis- lovenox, protonix, oob, spirometer 4) colon cancer- follow path. met to mesocolon noted during surgery.
--- NOTE | 2019-11-05 13:38 | PN ---
Progress Note (short form) - Note Progress Note: Anesthesia Post Op Note Pt awake alert in bed Denies n/v, puritis Gillespie in situ, no ambulation yet o/w vss no apparent anesth complications Brigitte Tinoco.
[2019-11-05] MEDS: ONDANSETRON 4 MG/2 ML VIAL IVPUSH PRN ×2 (15:56→23:11)
[2019-11-06] MEDS: oxyCODONE HCL 5 MG TABLET PO PRN ×4 (00:47→19:41)
[2019-11-06] MEDS: D5-1/2NS+20 MEQ KCL - 20 MEQ/1,000 ML INFUS.BAG IV SCH ×3 (01:17→21:28)
[2019-11-06 06:39] LABS: BASO % 0.1 % (0-2.0); EOS % 1.5 % (0-4.5); HEMATOCRIT 31.1 % (32.4-45.2); HEMOGLOBIN 10.2 GM/dL (10.7-15.3); MCH 28.9 pg (25.7-33.7); MCHC 32.8 g/dl (32.0-36.0); MEAN CELL VOLUME 88.3 fl (80-96); MEAN PLT VOLUME 6.9 fl (7.5-11.1); MONO % 7.1 % (3.8-10.2); NEUT % 74.3 % (42.8-82.8); PLATELET COUNT 388 K/MM3 (134-434); RBC 3.52 M/mm3 (3.60-5.2); RDW 12.5 % (11.6-15.6); WHITE BLOOD COUNT 10.1 K/mm3 (4.0-10.0)
[2019-11-06 06:41] LABS: BLOOD UREA NITROGEN 5.3 mg/dL (7-18); CALCIUM 8.3 mg/dL (8.5-10.1); CREATININE 0.6 mg/dL (0.55-1.3); MAGNESIUM 1.9 mg/dL (1.8-2.4); PHOSPHOROUS 2.5 mg/dL (2.5-4.9); POTASSIUM 3.7 mmol/L (3.5-5.1)
[2019-11-06] MEDS: ENOXAPARIN NA (PORCINE) 40 MG/0.4 ML DISP.SYRIN SQ SCH (10:10)
[2019-11-06] MEDS: PANTOPRAZOLE SODIUM 40 MG VIAL IVPUSH SCH (10:10)
--- NOTE | 2019-11-06 13:43 | PN ---
Progress Note (short form) - Note Progress Note: surgery pt seen and examined feels well. no pain. oob. afebrile abd- soft, nd, dakota serous. nt Plan- 1) Pod#2- npo, ivf, dakota, gallardo 2) morphine, oxycodone 3) prophylaxis- lovenox, protonix, oob, spirometer 4) colon cancer- follow path. met to mesocolon noted during surgery.
[2019-11-07] MEDS: oxyCODONE HCL 5 MG TABLET PO PRN ×4 (01:53→23:14)
[2019-11-07 07:01] LABS: BASO % 0.6 % (0-2.0); EOS % 7.2 % (0-4.5); HEMATOCRIT 33.8 % (32.4-45.2); HEMOGLOBIN 11.2 GM/dL (10.7-15.3); LYMPH % 26.3 % (8-40); MCHC 33.1 g/dl (32.0-36.0); MEAN CELL VOLUME 87.8 fl (80-96); MEAN PLT VOLUME 6.7 fl (7.5-11.1); MONO % 10.5 % (3.8-10.2); NEUT % 55.4 % (42.8-82.8); PLATELET COUNT 384 K/MM3 (134-434); RBC 3.85 M/mm3 (3.60-5.2); RDW 12.3 % (11.6-15.6); WHITE BLOOD COUNT 6.6 K/mm3 (4.0-10.0)
[2019-11-07 07:19] LABS: BLOOD UREA NITROGEN 4.1 mg/dL (7-18); CALCIUM 8.7 mg/dL (8.5-10.1); CREATININE 0.6 mg/dL (0.55-1.3); MAGNESIUM 2.2 mg/dL (1.8-2.4); POTASSIUM 3.6 mmol/L (3.5-5.1)
[2019-11-07] MEDS: D5-1/2NS+20 MEQ KCL - 20 MEQ/1,000 ML INFUS.BAG IV SCH ×2 (08:19→13:17)
[2019-11-07] MEDS: ENOXAPARIN NA (PORCINE) 40 MG/0.4 ML DISP.SYRIN SQ SCH (09:42)
[2019-11-07] MEDS: PANTOPRAZOLE SODIUM 40 MG VIAL IVPUSH SCH (09:42)
[2019-11-07] MEDS ORDERED: morphine SULFATE 4 MG/ML VIAL IVPB PRN (12:16)
[2019-11-07] MEDS: ONDANSETRON 4 MG/2 ML VIAL IVPUSH PRN (23:19)
[2019-11-08] MEDS: D5-1/2NS+20 MEQ KCL - 20 MEQ/1,000 ML INFUS.BAG IV SCH ×2 (05:29→13:11)
[2019-11-08] MEDS: oxyCODONE HCL 5 MG TABLET PO PRN ×3 (06:17→16:08)
[2019-11-08 07:10] LABS: BASO % 0.3 % (0-2.0); EOS % 6.3 % (0-4.5); HEMATOCRIT 35.2 % (32.4-45.2); HEMOGLOBIN 11.8 GM/dL (10.7-15.3); LYMPH % 24.2 % (8-40); MCH 29.3 pg (25.7-33.7); MCHC 33.5 g/dl (32.0-36.0); MEAN CELL VOLUME 87.4 fl (80-96); MEAN PLT VOLUME 6.6 fl (7.5-11.1); MONO % 8.9 % (3.8-10.2); NEUT % 60.3 % (42.8-82.8); PLATELET COUNT 418 K/MM3 (134-434); RBC 4.03 M/mm3 (3.60-5.2); RDW 12.4 % (11.6-15.6); WHITE BLOOD COUNT 5.8 K/mm3 (4.0-10.0)
[2019-11-08 07:34] LABS: POTASSIUM 3.8 mmol/L (3.5-5.1)
[2019-11-08 07:38] LABS: BLOOD UREA NITROGEN 6.9 mg/dL (7-18); CALCIUM 8.6 mg/dL (8.5-10.1); CREATININE 0.6 mg/dL (0.55-1.3); PHOSPHOROUS 3.7 mg/dL (2.5-4.9)
[2019-11-08] MEDS: PANTOPRAZOLE SODIUM 40 MG VIAL IVPUSH SCH (09:49)
[2019-11-08] MEDS: ENOXAPARIN NA (PORCINE) 40 MG/0.4 ML DISP.SYRIN SQ SCH (09:49)
[2019-11-08] MEDS ORDERED: PT OWN MED DRAWER 7, Y5N ONE (13:39)
[2019-11-09] MEDS: oxyCODONE HCL 5 MG TABLET PO PRN ×3 (02:56→13:34)
[2019-11-09 06:52] LABS: BASO % 0.3 % (0-2.0); EOS % 3.9 % (0-4.5); LYMPH % 20.4 % (8-40); MCH 29.2 pg (25.7-33.7); MCHC 33.5 g/dl (32.0-36.0); MEAN CELL VOLUME 87.3 fl (80-96); MEAN PLT VOLUME 6.7 fl (7.5-11.1); MONO % 9.5 % (3.8-10.2); NEUT % 65.9 % (42.8-82.8); PLATELET COUNT 418 K/MM3 (134-434); RBC 4.12 M/mm3 (3.60-5.2); RDW 12.7 % (11.6-15.6); WHITE BLOOD COUNT 7.2 K/mm3 (4.0-10.0)
[2019-11-09] MEDS: PANTOPRAZOLE SODIUM 40 MG VIAL IVPUSH SCH (09:03)
[2019-11-09] MEDS: ENOXAPARIN NA (PORCINE) 40 MG/0.4 ML DISP.SYRIN SQ SCH (09:03)
[2019-11-09 09:07] LABS: BLOOD UREA NITROGEN 7.2 mg/dL (7-18); CALCIUM 8.8 mg/dL (8.5-10.1); CREATININE 0.6 mg/dL (0.55-1.3); MAGNESIUM 2.3 mg/dL (1.8-2.4); POTASSIUM 3.9 mmol/L (3.5-5.1)
--- NOTE | 2019-11-09 12:21 | PN ---
Progress Note (short form) - Note Progress Note: POD 4, s/p laparoscopic low anterior resection Pt seen and examined. Reports she is feeling "okay". No issues over the weekend. Has been oob to the restroom without issue. Had one small bowel movement overnight (diarrhea). Passing flatus. Denies cp/sob, n/v/d. Tolerating full liquids. Vital Signs Temp 98.8 F 11/09/19 09:45 Pulse 86 11/09/19 09:45 Resp 19 11/09/19 09:45 BP 137/81 11/09/19 09:45 Pulse Ox 97 11/09/19 09:45 Intake & Output 11/08/19 11/09/19 11/09/19 23:59 11:59 23:59 Intake Total 1110 Output Total 1982 445 Balance -872 -445 Intake: IV 910 D5-1/2NS+20 MEQ KCL - 20 900 meq In 1,000 ml @ 100 mls /hr IV ASDIR TIAN Rx#: [id number] RH #20 11/08/19 10 Oral 200 Output: Drainage 112 45 Left Lower Abdomen 112 45 Urine 1870 400 Gillespie 1870 400 Other: Voiding Method Indwelling Catheter Toilet Bowel Movement No No CBC, BMP 11/09/19 05:32 11/09/19 05:32 Gen: awake, alert, nad Resp: Unlabored on RA Abdo: soft, minimally distended, incisions all c/d/i with dermabond in place, no erythema or drainage. +bowel sounds in all 4 quadrants. + ttp in hypogastric region (appropriate to status). Drain in place with approx 15ml serosanguinous drainage in reservoir. A/P: 54 y/o F w/ PMhx GERD, prior appendiceal cancer s/p prior r hemicolectomy, now POD 4, s/p laparoscopic low anterior resection. afebrile, vss labs wnl -Drain removed without issue, tip intact pt tolerated well -All d/c instructions reviewed with pt at length, pt verbalized understanding d/w attending Dr Mcgee
[2019-11-09] MEDS ORDERED: ACETAMINOPHEN 500 MG TABLET (FP) PO ONE (15:30)
[2019-11-09 15:59] VITALS: BP 131/74; PULSE 91; TEMP 98.3
--- NOTE | 2019-11-10 16:53 | PATH ---
Surgical Pathology Report Patient Name: CARMEN GOTTI [facility]. Rec. #: [id number] /Age/Gender: 1965 (Age: 54) / F Account: [id number] Location: 4 SO PEDS/ADOL Taken: 11/04/2019 Received: 11/04/2019 Reported: 11/10/2019 Physicians: Felipe Mcgee Specimen(s) Received A: COLONIC MESENTERIC NODULE (FS) B: RECTOSIGMOID COLON C: ADDITIONAL DISTAL MARGIN D: ABDOMINAL SCAR Clinical History Malignant neoplasm of sigmoid colon History of colon cancer x2 Intraoperative Consult Diagnosis A. Colonic mesenteric nodule, frozen section: Adenocarcinoma. Rafa Miguel M.D., 11/04/2019 Final Diagnosis A. COLONIC MESENTERIC NODULE, EXCISION (FS): MUCINOUS ADENOCARCINOMA EXTENSIVELY REPLACING LYMPH NODE (02/11). TUMOR DEPOSIT MEASURES 7 MM IN GREATEST MICROSCOPIC DIMENSION. NO EXTRANODAL EXTENSION IDENTIFIED. SEE COMMENT. B. RECTOSIGMOID COLON, LAPAROSCOPIC LOW ANTERIOR RESECTION: MUCINOUS ADENOCARCINOMA, MODERATELY DIFFERENTIATED, ASSOCIATED WITH ABSCESS FORMATION. TUMOR MEASURES 6.5 x 4.2 CM (GROSS MEASUREMENT). TUMOR LOCATED AT SIGMOID COLON (PER OPERATIVE REPORT). TUMOR INVADES INTO PERICOLONIC ADIPOSE TISSUE. NO DEFINITIVE LYMPHOVASCULAR OR PERINEURAL INVASION IDENTIFIED. SURGICAL MARGINS ARE NEGATIVE. TWENTY NINE LYMPH NODES NEGATIVE FOR CARCINOMA (0/29). PATHOLOGIC STAGE: pT3 pN1a. SEE CASE SUMMARY. SEE COMMENT. C. ADDITIONAL DISTAL MARGIN, EXCISION: COLONIC MUCOSA WITH VASCULAR CONGESTION. NO MALIGNANCY IDENTIFIED. D. ABDOMINAL SCAR, EXCISION: SKIN WITH DERMAL SCAR. Comment: Case discussed with Dr. Mcgee, 11/10/19. Additional studies for Mismatch repair proteins (MMR) are pending and will be reported as an addendum. Comments Colorectal Carcinoma :Surgical Pathology Cancer Case Summary (Based on AJCC TNM 8 th edition) Procedure _X_ Low anterior resection Tumor Site _X__ Sigmoid colon Tumor Size Greatest dimension (centimeters): 6.5 x 4.2 cm (gross measurement). Macroscopic Tumor Perforation _X_ Not identified Histologic Type _X_ Mucinous adenocarcinoma Histologic Grade _X_ G2: Moderately differentiated Tumor Extension _X__ Tumor invades through the muscularis propria into pericolorectal tissue Margins _X_ All margins are uninvolved by invasive carcinoma, high-grade dysplasia, intramucosal adenocarcinoma, and adenoma Margins examined: Proximal, distal, mesenteric/radial Treatment Effect _X_ No known presurgical therapy Lymphovascular Invasion _X_ Not identified Perineural Invasion _X_ Not identified Tumor Deposits _X_ Not identified Regional Lymph Nodes Lymph Node Examination Number of Lymph Nodes Involved: 1 Number of Lymph Nodes Examined: 30 Pathologic Stage Classification (pTNM, AJCC 8th Edition) Primary Tumor (pT) _X_ pT3: Tumor invades through the muscularis propria into pericolorectal tissues Regional Lymph Nodes (pN) _X_ pN1a: One regional lymph node is positive. Electronically Signed Supriya Drake M.D. Addendum Reported: 11/12/2019 Addendum Diagnosis Immunohistochemical stains for MisMatch Repair Protein Analysis performed at [facility] in [place], [place] ([id number]) and interpreted at [facility] show the following: RESULTS: HMLH-1 INTACT NUCLEAR EXPRESSION HMSH-2 INTACT NUCLEAR EXPRESSION HMSH-6 INTACT NUCLEAR EXPRESSION PMS2 INTACT NUCLEAR EXPRESSION INTERPRETATION: No loss of nuclear expression of MMR proteins: low probability of microsatellite instability-high (MSI-H). Molecular studies (Omniseq) pending, findings will be reported separately. Positive and negative controls (internal if applicable) show appropriate results. Supriya Drake M.D. Gross Description A. Received fresh labeled "colonic mesenteric nodule," is a 4.0 x 2.0 x 1.0 cm portion of yellow, lobulated adipose tissue. Sectioning reveals a 0.7 cm in greatest dimension pale johnson nodule. The nodule is bisected. A touch prep is performed. Half of the nodule is submitted for frozen section. Surgical Supplies Sterilizer sections are submitted in 2 cassettes as follows: 1-frozen section residue; 2-remainder of nodule. B. Received in formalin labeled "rectosigmoid colon," is a 17.5 cm in length portion of colon with 2 stapled mucosal margins and moderate attached pericolonic adipose tissue. There is a suture marking the proximal aspect of the specimen, per the surgeon. The serosa is johnson-doss with focal bulging and umbilication. There is exudate present in the area of the umbilication. There is a separate transmural defect present (possible surgical defect), 2 cm distal to the proximal mucosal margin. The mucosa reveals a 6.5 x 4.2 cm, johnson, mucinous, polypoid mass in the area of the serosal umbilication. The mass is 4 cm proximal to the distal mucosal margin. The mass is 2.5 cm from the mesenteric margin of resection. The mass is above the peritoneal reflection. Sectioning reveals an abscess cavity in the pericolonic adipose tissue surrounding the mass. The mass appears to invade through the serosa and into the pericolonic adipose tissue. Surgical Supplies Sterilizer sections are submitted in 36 cassettes as follows: 1-proximal mucosal margin of resection; 2-distal mucosal margin of resection; 3-shave of mesenteric margin of resection; 4-6-mass with surrounding pericolonic adipose tissue; 7-8-one bisected full thickness section of mass with abscess cavity to inked serosal surface; 1-87-nzxvnrmvdr bisected full thickness section of mass with abscess cavity to inked serosal surface; 11-colon proximal to mass; 12-colon distal to mass; 13-sections from possible surgical defect; 14-15-one quadrisected lymph node; 16-19-one trisected lymph node each; 20-31-one bisected lymph node each; 32-35-two whole possible lymph nodes each; 36-three whole possible lymph nodes. C. Received in formalin labeled "additional distal margin," is a 1.6 cm in diameter annular portion of bowel, consistent with a margin. The specimen displays a staple line. The staple line is removed and the specimen is submitted in toto in one cassette. D. Received in formalin labeled "abdominal scar" is an 11.0 x 1.2 cm johnson-brown, elliptical, unoriented portion of skin excised to a depth of 0.7 cm. The epidermal surface displays a central, linear scar. Surgical Supplies Sterilizer sections are submitted in one cassette. 11/04/2019 saudi11/04/2019
--- NOTE | 2019-11-17 12:22 | DS ---
DATE OF ADMISSION: 11/03/2019 DATE OF DISCHARGE: 11/09/2019 ADMITTING DIAGNOSIS: Colon cancer. DISCHARGE DIAGNOSIS: Colon cancer. BRIEF HISTORY AND HOSPITAL COURSE: This is a 54-year-old female who was admitted 1 day prior to surgery for a formal bowel prep and IV hydration. She was then taken to the operating room for a laparoscopic low anterior resection. Please refer to operative dictation for complete details. Patient had the usual expected postoperative ileus. Once her bowel started recovering function, she was placed on a full liquid diet for the ensuing 24 hours, and she had no issues, and therefore she was subsequently discharged to home in stable condition. At the time of discharge, the patient had no leukocytosis. She had no history of fevers, chills, or sweats. Pathology was pending at the time of discharge. DISCHARGE MEDICATIONS: Same as admission medications. She was added oxycodone on a p.r.n. basis. Patient discharged in stable condition and will follow up with me in the office 1 week after surgery. Demian MARTINS [id number] cc: Dr. Lars Garcia
== END 2019-11-09 17:44 | disposition home or self-care (01) | DRG 330 ==
LOC: J4S 09:21 → EDSTATUS 11-04 08:00
PROVIDERS: ADMIT Surgery; ATTEND Surgery
PROC: 0DNW0ZZ Release Peritoneum, Open Approach (ICD-10-PCS; 2019-11-04)
PROC: 0D7Q8ZZ Dilation of Anus, Via Natural or Artificial Opening Endoscopic (ICD-10-PCS; 2019-11-04)
PROC: 0DJD8ZZ Inspection of Lower Intestinal Tract, Via Natural or Artificial Opening Endoscopic (ICD-10-PCS; 2019-11-04)
PROC: 0DT Gastrointestinal System, Resection (ICD-10-PCS; principal; 2019-11-04 08:00)
DX: C18.9 Malignant neoplasm of colon, unspecified (principal); C78.6 Secondary malignant neoplasm of retroperitoneum and peritoneum; C77.2 Secondary and unspecified malignant neoplasm of intra-abdominal lymph nodes; K21.9 Gastro-esophageal reflux disease without esophagitis
CPT/HCPCS: 36415; 80048; 83735; 84100; 85025; 85027; 86850; 86900; 86901; 88304-TC; 88305-TC; 88307-TC; 88309-TC; 88331-TC; 94760